=== PATIENT | female | born 1950 | race Caucasian/White ===

== ENCOUNTER 2017-06-11 07:35 | Emergency (ER) | payer MEDICARE, BC ==
[2017-06-11 08:05] VITALS: BP 128/68
--- NOTE | 2017-06-11 09:49 | UC ---
Respiratory Complaint HPI - HPI Summary HPI Summary: Patient presents with 1 week of cough, wheeze and burning sensation in her lungs. She reports some mild nasal congestion and throat irritation but no fever, nausea/vomiting. She has some mild shortness of breath with exertion. Patient states she came in for evaluation as she is currently on immunosuppressive medication and is concerned about bacterial infection. - History of Current Complaint Chief Complaint: UCGeneralIllness Stated Complaint: RESP ISSUE Time Seen by Provider: 06/11/17 09:22 Hx Obtained From: Patient Onset/Duration: Gradual Onset, Lasting Days, Still Present Timing: Constant Severity Initially: Moderate Severity Currently: Moderate Pain Intensity: 0 Pain Scale Used: 0-10 Numeric Character: Cough: Nonproductive Aggravating Factors: Nothing Alleviating Factors: Nothing Associated Signs And Symptoms: Positive: Dyspnea, Pleuritic Chest Pain, Wheezing , URI, Nasal Congestion. Negative: Fever, Chills, Hemoptysis - Allergies/Home Medications Allergies/Adverse Reactions: Allergies Allergy/AdvReac Type Severity Reaction Status Date / Time No Known Allergies Allergy Verified 06/11/17 07:49 Home Medications: Home Medications Acetaminophen [Acetaminophen Extra Strength] 1,000 mg PO ONCE 06/11/17 [History Confirmed 06/11/17] Ascorbic Acid/Ascorbate Sodium [Vitamin C 500 mg Wafer] 500 mg PO DAILY [History Confirmed 06/11/17] Calcium Carbonate/Vitamin D3 [Caltrate 600 + D Soft Chew Tab] 1 each PO DAILY [History Confirmed 06/11/17] Cetirizine* [ZyrTEC 10 MG TAB*] 10 mg PO DAILY 06/11/17 [History Confirmed 06/11] Docusate CAP* [Colace Cap*] 250 mg PO BEDTIME 06/11/17 [History Confirmed ] Tocilizumab [Actemra] 162 mg SQ WEEKLY 06/11/17 [History Confirmed 06/11/17] Ubidecarenone [Co Q-10] 100 mg PO DAILY 06/11/17 [History Confirmed 06/11/17] PMH/Surg Hx/FS Hx/Imm Hx - Additional Past Medical History Additional PMH: GCA, PMR - Surgical History Surgical History: Yes Surgery Procedure, Year, and Place: hysterectomy// sm bowel surgery - Family History Known Family History: Negative: Hypertension - Social History Alcohol Use: None Substance Use Type: None Smoking Status (MU): Never Smoked Tobacco Review of Systems Constitutional: Negative ENT: Nasal Discharge Respiratory: Shortness Of Breath, Cough, Other - WHEEZE Cardiovascular: Negative Gastrointestinal: Negative All Other Systems Reviewed And Are Negative: Yes Physical Exam Triage Information Reviewed: Yes Appearance: Well-Appearing, No Pain Distress, Well-Nourished Vital Signs: Initial Vital Signs Temp 97.5 F 06/11/17 07:56 Pulse 73 06/11/17 07:56 Resp 16 06/11/17 07:56 BP 128/68 06/11/17 07:56 Pulse Ox 99 06/11/17 07:56 Vital Signs Reviewed: Yes Eyes: Positive: Conjunctiva Clear ENT: Positive: Hearing grossly normal, Pharynx normal, TMs normal Neck: Positive: Supple, Nontender, No Lymphadenopathy Respiratory: Positive: No respiratory distress, No accessory muscle use, Wheezing - DIFFUSE Cardiovascular Exam: Normal Abdomen Description: Positive: Soft Musculoskeletal: Positive: No Edema Neurological: Positive: Alert Psychological: Positive: Age Appropriate Behavior Skin: Negative: rashes UC Diagnostic Evaluation - Laboratory O2 Sat by Pulse Oximetry: 99 Respiratory Course/Dx - Differential Dx/Diagnosis Provider Diagnoses: BRONCHITIS WITH BRONCHOSPASM Discharge - Sign-Out/Discharge Documenting (check all that apply): Discharge - Discharge Plan Condition: Stable Disposition: HOME Prescriptions: Albuterol HFA INHALER* [Ventolin HFA Inhaler*] 2 puff INH Q4H PRN #1 mdi PRN Reason: Shortness Of Breath Amoxicillin PO (*) [Amoxicillin 500 MG CAP*] 1,000 mg PO Q12H #28 cap Inhaler, Assist Devices [Aerochamber Mini] 1 each MC Q4H #1 spacer Patient Education Materials: Acute Bronchitis (ED), Bronchospasm (ED) Referrals: Clinton Guerrero MD [Primary Care Provider] - If Needed Additional Instructions: YOUR SYMPTOMS MAY BE VIRALLY MEDIATED BUT GIVEN THE LENGTH OF TIME YOU HAVE BEEN ILL AND IN LIGHT OF YOU TAKING IMMUNOSUPPRESIVE MEDICATION WE WILL COVER YOU WITH ANTIBIOTICS. IF YOU START THE MEDICINE BE SURE TO TAKE IT FOR THE FULL COURSE. REST, HYDRATE, OTC MEDS NEEDED. WILL ALSO TREAT WITH ALBUTEROL INHALER. SEEK FOLLOW-UP WITH YOUR PCP IF YOU ARE NOT IMPROVING OVER THE NEXT 1- 2 WEEKS. - Billing Disposition and Condition Condition: STABLE Disposition: HOME
== END 2017-06-11 09:48 | disposition home or self-care (01) ==
LOC: UCEAST 07:35
DX: J20.9 Acute bronchitis, unspecified (principal)
CPT/HCPCS: 99212; G0463